=== PATIENT | male | born 1965 | race Caucasian/White ===

== ENCOUNTER 2018-08-26 19:23 | Emergency (ER) | payer BC, SELFPAY ==
[2018-08-26 19:24] VITALS: BP 147/91; PULSE 83; RESP 16; TEMP 36.4; O2SAT 98; BMI 25.0
[2018-08-26] MEDS: Fluorescein 1 MG STRIP 1 STRIP EACH EYE (20:16)
[2018-08-26] MEDS: Tetracaine 0.5% Ophthalmic Bottle 2 DRP EACH EYE (20:16)
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
--- NOTE | 2018-08-26 20:56 | ED.DEP ---
ED Disposition - Plan for ED Patient: Disposition: Home or Assisted Living Instructions: ED Eye Injury Corneal Abrasion Prescriptions: Hydrocodone Bitart/Apap 5-325 [[place] 5MG-325MG] 1 tablet PO Q6H PRN PRN 3 Days #10 tablet PRN Reason: Pain Erythromycin Ophthalmic 1 applic RIGHT EYE TID #1 opth.tube Referrals: Jesu Fernando MD [STAFF PHYSICIAN] - 1 Day
--- NOTE | 2018-08-26 21:00 | DCINST.ED_ITS ---
ED Disposition - Plan for ED Patient: Disposition: Home or Assisted Living Instructions: ED Eye Injury Corneal Abrasion Prescriptions: Hydrocodone Bitart/Apap 5-325 [Gab[place] 5MG-325MG] 1 tablet PO Q6H PRN PRN 3 Days #10 tablet PRN Reason: Pain Erythromycin Ophthalmic 1 applic RIGHT EYE TID #1 opth.tube Referrals: Jesu Fernando MD [STAFF PHYSICIAN] - 1 Day
[2018-08-26] MEDS: HYDROcodone Bitartrate/Apap 5/325 Tablet PO (21:16)
[2018-08-26] MEDS: Erythromycin Base 1 OPTH.TUBE 1 APPLIC OPHTHALMIC (21:16)
== END 2018-08-26 21:18 | disposition home or self-care (01) ==
PROVIDERS: Emergency Provider Emergency Medicine; Family Provider Family Medicine; PCP Family Medicine
DX: S05.8X2A Other injuries of left eye and orbit, initial encounter (principal); S05.8X1A Other injuries of right eye and orbit, initial encounter; X58.XXXA Exposure to other specified factors, initial encounter; Y93.89 Activity, other specified; Y92.9 Unspecified place or not applicable
CPT/HCPCS: 99284; A4216